=== PATIENT | male | born 1980 | race Caucasian/White ===

== ENCOUNTER 2017-12-25 01:29 | Inpatient (IN) | payer SELFPAY ==
[2017-12-25 01:49] LABS: ADD MAN DIFF? NO
[2017-12-25] MEDS: IV NORMAL SALINE 1000ML BAG 1,000 ML IV (01:49)
[2017-12-25 01:51] LABS: BASO % 1 % (0-3); EOS # 0.2 x10^3/uL (0.0-0.7); EOS % 3 % (0-3); LYMPH # 1.7 x10^3/uL (1.0-4.8); LYMPH % 24 % (24-48); MEAN CORPUSCULAR HEMOGLOBIN 31 pg (25-35); MEAN CORPUSCULAR HGB CONC 34 g/dL (31-37); MEAN CORPUSCULAR VOLUME 92 fL (79-100); MONO # 0.6 x10^3/uL (0.0-1.1); MONO % 8 % (0-9); NEUT # 4.4 x10^3uL (1.8-7.7); NEUT % 64 % (31-73); PLATELET COUNT 187 x10^3/uL (140-400); RED CELL DISTRIBUTION WIDTH 13.9 % (11.5-14.5)
[2017-12-25 02:20] LABS: ANION GAP 9 (6-14); BLOOD UREA NITROGEN 4 mg/dL (8-26); BUN/CREATININE RATIO 4 (6-20); CALCIUM 9.4 mg/dL (8.5-10.1); CARBON DIOXIDE 27 mmol/L (21-32); CHLORIDE 104 mmol/L (98-107); CREATININE 0.9 mg/dL (0.7-1.3); GFR 95.5; GLUCOSE 104 mg/dL (70-99); POTASSIUM 4.4 mmol/L (3.5-5.1); SODIUM 140 mmol/L (136-145)
[2017-12-25 02:26] LABS: ALBUMIN 4.2 g/dL (3.4-5.0); ALBUMIN/GLOBULIN RATIO 1.4 (1.0-1.7); ALK PHOS 60 U/L (46-116); ALT (SGPT) 15 U/L (16-63); AST (SGOT) 20 U/L (15-37); MAGNESIUM 2.4 mg/dL (1.8-2.4); TOTAL BILIRUBIN 0.4 mg/dL (0.2-1.0); TOTAL PROTEIN 7.2 g/dL (6.4-8.2)
[2017-12-25] MEDS: IBUPROFEN 400 MG TABLET. PO (08:52)
[2017-12-25] MEDS: diazePAM 5 MG TABLET PO ×3 (12:03→21:09)
[2017-12-25] MEDS: THIAMINE 100 MG TABLET. PO (17:10)
[2017-12-25 21:10] LABS: MRSA BY PCR Negative (Negative)
[2017-12-26] MEDS: diazePAM 5 MG TABLET PO ×4 (03:25→21:20)
[2017-12-26 05:21] LABS: ADD MAN DIFF? NO
[2017-12-26 05:34] LABS: BASO # 0.1 x10^3/uL (0.0-0.2); BASO % 1 % (0-3); EOS # 0.3 x10^3/uL (0.0-0.7); EOS % 4 % (0-3); HEMATOCRIT 43.8 % (39.0-53.0); HEMOGLOBIN 14.8 g/dL (13.0-17.5); LYMPH # 2.5 x10^3/uL (1.0-4.8); LYMPH % 36 % (24-48); MEAN CORPUSCULAR HEMOGLOBIN 31 pg (25-35); MEAN CORPUSCULAR HGB CONC 34 g/dL (31-37); MEAN CORPUSCULAR VOLUME 93 fL (79-100); MONO # 0.7 x10^3/uL (0.0-1.1); MONO % 10 % (0-9); NEUT # 3.5 x10^3uL (1.8-7.7); NEUT % 50 % (31-73); PLATELET COUNT 184 x10^3/uL (140-400); RED BLOOD COUNT 4.72 x10^6/uL (4.30-5.70)
[2017-12-26 05:52] LABS: ANION GAP 7 (6-14); BLOOD UREA NITROGEN 10 mg/dL (8-26); CALCIUM 8.3 mg/dL (8.5-10.1); CARBON DIOXIDE 28 mmol/L (21-32); CHLORIDE 105 mmol/L (98-107); CREATININE 0.8 mg/dL (0.7-1.3); GFR 109.4; GLUCOSE 92 mg/dL (70-99); SODIUM 140 mmol/L (136-145)
[2017-12-26 06:51] LABS: BARBITURATES NEG (NEG); BENZODIAZEPINES POS (NEG); CANNABINOIDS NEG (NEG); COCAINE NEG (NEG); METHADONE NEG (NEG); OPIATES NEG (NEG); PHENCYCLIDINE NEG (NEG)
[2017-12-26 06:53] LABS: AMPHETAMINE/METHAMPHETAMINE NEG (NEG); ETHANOL, URINE NEG (NEG)
[2017-12-26] MEDS: THIAMINE 100 MG TABLET. PO (08:37)
[2017-12-26 09:47] LABS: PLT ESTIMATE ADEQUATE (ADEQUATE)
[2017-12-27] MEDS: diazePAM 5 MG TABLET PO ×3 (06:06→17:31)
[2017-12-27] MEDS: THIAMINE 100 MG TABLET. PO (11:16)
== END 2017-12-27 17:40 | disposition home or self-care (01) | DRG 897 ==
LOC: ER 01:29 → 6 SOUTH 03:10
PROC: 4A10X4Z Monitoring of Central Nervous Electrical Activity, External Approach (ICD-10-PCS; principal; 2017-12-25)
DX: F13.239 Sedative, hypnotic or anxiolytic dependence with withdrawal, unspecified (principal); R56.9 Unspecified convulsions; F10.20 Alcohol dependence, uncomplicated; F41.9 Anxiety disorder, unspecified
CPT/HCPCS: 36415; 70450; 80048; 80053; 80307; 83735; 84100; 85025; 87641; 93005; 95816; 96361; 96374; 99285-25; J2060; J7030